=== PATIENT | male | born 1995 | race Caucasian/White ===

== ENCOUNTER 2024-05-29 20:34 | Emergency (ER) | payer SELFPAY ==
[~2024-05-29] VITALS: Ht 170.2 cm; Wt 71.0 kg
[2024-05-29 21:27] VITALS: O2SAT 100
[2024-05-29] MEDS: LIDOCAINE HCL/PF 1% 10 MG/ML 5ML VIAL INFIL ONE (23:00)
[2024-05-29] MEDS ORDERED: TETANUS, DIPHTHERIA, PERTUSSIS VAC/PF 0.5ML (>10YR OLD) IM ONE (23:00)
[2024-05-29] MEDS: BACITRACIN ZINC OINT UDPKT TOP ONE (23:00)
[2024-05-29] MEDS: IBUPROFEN 600MG TABLET PO ONE (23:00)
[2024-05-29] MEDS ORDERED: CEPH500C2 MT (23:28)
[2024-05-29] MEDS ORDERED: IBUP-2029 MT (23:28)
[2024-05-29] MEDS ORDERED: BO1 TP (23:28)
[2024-05-30] MEDS: BACITRACIN ZINC OINT UDPKT TOP NR (00:51)
[2024-05-30] MEDS: IBUPROFEN 600MG TABLET PO NR (00:51)
[2024-05-30] MEDS: TETANUS, DIPHTHERIA, PERTUSSIS VAC/PF 0.5ML (>10YR OLD) IM ONE (00:52)
[2024-05-30 01:22] VITALS: BP 148/89; PULSE 101; RESP 18; TEMP 36.8; O2SAT 100
== END 2024-05-30 01:00 | disposition home or self-care (01) ==
LOC: ER 20:34
DX: S61.011A Laceration without foreign body of right thumb without damage to nail, initial encounter (principal); W26.8XXA Contact with other sharp object(s), not elsewhere classified, initial encounter; Y93.89 Activity, other specified; Y92.89 Other specified places as the place of occurrence of the external cause; Y99.8 Other external cause status
CPT/HCPCS: 73140; 12001; 99283; 90715; 90471; Z7610